=== PATIENT | female | born 1965 | race Caucasian/White ===

== ENCOUNTER 2022-11-16 08:02 | Emergency (ER) | payer BC, SELFPAY ==
--- NOTE | ~2022-11-16 | XR_ITS ---
EXAMINATION: XR finger 5th RT min 2V INDICATION: Right fifth finger pain TECHNIQUE: Three views of the right fifth finger are obtained. COMPARISON: None available FINDINGS: There is flexion at the distal interphalangeal joint and mild extension of the proximal int erphalangeal joint. There is soft tissue swelling of the fifth finger. No definite fracture is identi fied. IMPRESSION: 1. Mallet finger deformity of the fifth digit without definite fracture identified, suggestive of ext ensor tendon avulsion of the distal interphalangeal joint. Reviewed, dictated and finalized at location A. IMPRESSION: 1. Mallet finger deformity of the fifth digit without definite fracture identif ied, suggestive of extensor tendon avulsion of the distal interphalangeal joint .
[2022-11-16 08:03] VITALS: BP 165/84; PULSE 78; RESP 18; TEMP 36.2; O2SAT 98
--- NOTE | 2022-11-16 08:10 | ED.UPPEXIN ---
HPI - Extremity Injury (Upper) General Chief Complaint: Extremity Injury, Upper Stated Complaint: R finger injury Source: patient and family Mode of arrival: ambulatory Limitations: no limitations History of Present Illness HPI narrative: Patient is a 57-year-old female with an injury in the middle the night going to the restroom. She accidentally hit her right small finger into a dresser. complaint: injury to: right Onset (ago): hour(s) Other Extremity Injury: Right: fingers (5th Distal digit) Other injuries: none Place: home Severity: mild Severity scale (1-10): 3 Relieving factors: immobilization Exacerbating factors: movement of extremity Context: direct blow Associated symptoms: denies other symptoms Related Data Home Medications Medication Instructions Recorded Confirmed celecoxib 200 mg capsule 200 mg PO DAILY 11/16/22 11/16/22 omeprazole 40 mg capsule,delayed 40 mg PO DAILY 11/16/22 11/16/22 release Allergies Allergy/AdvReac Type Severity Reaction Status Date / Time No Known Allergies Allergy Verified 11/16/22 08:05 Review of Systems Review of Systems: All systems reviewed & are unremarkable except as noted in HPI and below Constitutional: Constitutional: Reports no additional constitutional complaints Eyes: Eyes: Reports no additional eye complaints ENT: Reports system reviewed and no additional complaints, except as documented Cardiovascular: Cardiovascular: Reports no additional cardiovascular complaints Respiratory: Respiratory: Reports no additional respiratory complaints Gastrointestinal: Gastrointestinal: Reports no additional gastrointestinal complaints Genitourinary: Genitourinary: Reports no additional female genitourinary complaints Musculoskeletal: Musculoskeletal: Reports no additional musculoskeletal complaints Integumentary/Breasts: Skin/Breast: Reports system reviewed and no additional complaints, except as docu Neurologic: Reports system reviewed and no additional complaints, except as documented Psychiatric: Psychiatric: Reports no additional psychiatric complaints Endocrine: Endocrine: Reports no additional endocrine complaints Hematologic/Lymphatic: Hematologic/Lymphatic: Reports no additional hematologic/lymphatic complaints Allergic/Immunologic: Allergic/Immunologic: Reports no additional allergic/immunologic complaints Exam Const: General: healthy appearing, no acute distress and alert HENMT: Head: normal to inspection, no contusions and no hematomas Chest: Chest palpation & inspection: normal inspection of the chest Resp: Effort & Inspection: normal respiratory effort, not labored and no retractions Auscultation: clear to auscultation bilaterally Cardio: Rate: regular rate and not bradycardic Rhythm: regular rhythm Heart sounds: no murmurs GI: Inspection: non-distended GI Palp: Yes Soft to palpation, No Tenderness to palpation present (GI) and No Guarding due to palpation present (GI) Auscultation: normal bowel sounds Skin: General skin exam: normal color Rashes: no rashes Wounds: no wounds Neuro: General: patient oriented x3, moves all extremities and no meningeal signs Extrem: General: abnormal to inspection, no clubbing, cyanosis or edema, no pedal edema and no edema Other: right hand 5th digit has appearance of dislocation with deformity of the distal interphalangeal joint Psych: Mental Status: mental status grossly normal Affect: normal affect Attitude: cooperative Course Vital Signs Vital signs: Vital Signs Temperature 36.2 C L 11/16/22 08:03 Pulse Rate 78 11/16/22 08:03 Respiratory Rate 18 11/16/22 08:03 Blood Pressure 165/84 H 11/16/22 08:03 Pulse Oximetry 98 11/16/22 08:03 Oxygen Delivery Room Air 11/16/22 08:03 Temperature 36.2 C L 11/16/22 08:03 Pulse Rate 78 11/16/22 08:03 Respiratory Rate 18 11/16/22 08:03 Blood Pressure 165/84 H 11/16/22 08:03 Pulse Oximetry 98 11/16/22 08
--- NOTE | 2022-11-16 08:48 | PC.NURSE ---
MD applied finger splint, nail beds abhishek good after
[2022-11-16 09:16] VITALS: BP 139/88; PULSE 80; RESP 20; TEMP 36.6; O2SAT 98
== END 2022-11-16 09:17 | disposition home or self-care (01) ==
PROVIDERS: Emergency Provider Emergency Medicine; PCP Family Medicine
DX: M20.011 Mallet finger of right finger(s) (principal)
CPT/HCPCS: 29130; 73140; 99283